=== PATIENT | male | born 1945 | race Hispanic/Latino ===

== ENCOUNTER 2021-12-12 06:53 | Day surgery (SDC) | payer OTHER ==
[2021-12-06 15:14] LABS: BASOPHILS % (AUTO) 0.2 % (0.0-5.0); EOSINOPHILS % (AUTO) 1.8 % (0.0-8.0); HEMATOCRIT 44.8 % (42-54); LYMPHOCYTES % (AUTO) 35.7 % (21.0-51.0); MEAN CORPUSCULAR HEMOGLOBIN 28.1 pg (27.0-33.0); MEAN CORPUSCULAR HGB CONC 32.1 g/dL (32.0-36.0); MEAN CORPUSCULAR VOLUME 87.3 fL (79-99); MONOCYTES % (AUTO) 8.5 % (3.0-13.0); NEUTROPHILS % (AUTO) 53.6 % (40.0-77.0); PLATELET COUNT (AUTO) 179 K/uL (130-400); RED BLOOD CELL COUNT(AUTO) 5.13 MIL/uL (4.50-6.20); RED CELL DISTRIBUTION WIDTH 14.6 % (11.0-15.5); WHITE BLOOD COUNT (AUTO) 6.1 K/uL (4.8-10.8)
[2021-12-06 15:20] LABS: APPEARANCE,URINE Clear (CLEAR); BILIRUBIN,URINE Negative (NEGATIVE); COLOR,URINE Yellow (YELLOW); GLUCOSE, URINE (UA) Negative (NEGATIVE); KETONES,URINE Negative (NEGATIVE); LEUKOCYTE ESTERASE ,URINE Negative (NEGATIVE); NITRATE,URINE Negative (NEGATIVE); OCCULT BLOOD,URINE Negative (NEGATIVE); PROTEIN,URINE Negative (NEGATIVE); UROBILINOGEN,URINE 0.2 mg/dL (0.2-1.0)
[2021-12-06 15:22] LABS: CREATININE 0.8 mg/dL (0.5-1.5); POTASSIUM 4.3 mmol/L (3.5-5.1)
[2021-12-06 15:28] LABS: INR 1.03 (0.85-1.15); PROTHROMBIN TIME 11.2 SEC (9.6-11.6)
[2021-12-06 15:29] LABS: PARTIAL THROMBOPLASTIN TIME 26.1 SEC (26.3-35.5)
[2021-12-12] VITALS (23 sets, daily range): BP systolic 103–150; BP diastolic 63–84
[~2021-12-12] VITALS: Ht 162.6 cm; Wt 82.6 kg
[~2021-12-12 06:53] MED LIST: CEFTRIAXONE 1G VIAL IVP SCH; EZET10TA48 PO; FINA5TAB41 PO; GENTAMICIN 80 MG/NS 100 ML PB 100 ML IV SCH; LOSA25TA41 PO; OMEG-148 PO; ROSU40TA21 PO; TAMS-1 PO
[2021-12-12] MEDS ORDERED: 0.9%NACL 1000ML 1,000 ML IV ONE (09:07)
[2021-12-12] MEDS ORDERED: Levaquin PO (10:34)
[2021-12-12] MEDS ORDERED: MIDAZOLAM HCL 1 MG/ML 2ML VIAL ONE (11:26)
[2021-12-12] MEDS ORDERED: PROPOFOL 10 MG/ML 20ML VIAL IV ONE (11:26)
[2021-12-12] MEDS ORDERED: LIDOCAINE PF 100MG/5ML (2%) SYRINGE 5ML ONE (11:26)
[2021-12-12] MEDS ORDERED: SUCCINYLCHOLINE 200MG/10ML SYR ONE (11:26)
[2021-12-12] MEDS ORDERED: ROCURONIUM 10MG/1ML SYR 10 MG/ML ML ONE ×2 (11:27→12:39)
[2021-12-12] MEDS ORDERED: FENTANYL CITRATE PF 50 MCG/1 ML 2ML VIAL ONE (11:27)
[2021-12-12] MEDS ORDERED: GLYCOPYRROLATE 1 MG/5 ML SYRINGE ONE ×2 (11:44→12:52)
[2021-12-12] MEDS ORDERED: EPHEDRINE SULFATE 50 MG/ML AMPULE ONE (12:03)
[2021-12-12] MEDS ORDERED: NEOSTIGMINE 5MG/5ML SYR IV ONE (12:52)
[2021-12-12] MEDS ORDERED: SUGAMMADEX SODIUM 200 MG/2 ML VIAL IV ONE (12:56)
[2021-12-12] MEDS ORDERED: MEPERIDINE-PF 25 MG/ML SYG ONE (13:24)
[2021-12-12] MEDS ORDERED: OPIUM/BELLADONNA ALKALOIDS 1 EACH SUPP.RECT RC ONE (13:58)
[2021-12-12] MEDS ORDERED: TRAMADOL HCL 50 MG TABLET ONE (14:54)
== END 2021-12-12 15:35 | disposition home or self-care (01) ==
LOC: DAH 06:53
PROVIDERS: ATTEND Urology
DX: N40.1 Benign prostatic hyperplasia with lower urinary tract symptoms (principal); R31.9 Hematuria, unspecified; N39.498 Other specified urinary incontinence; E11.9 Type 2 diabetes mellitus without complications; F32.9 Major depressive disorder, single episode, unspecified; E66.9 Obesity, unspecified; Z79.899 Other long term (current) drug therapy; Z20.822 Contact with and (suspected) exposure to COVID-19
CPT/HCPCS: 36415; 52648; 71045; 80048; 81003; 82948 ×2; 85025; 85610; 85730; 87088; 87635; 88305; 93005; A4215; A4221; A4222; A4223; A4354; A4358; A4663; A4930; A6260; C1758; J0330; J0696; J1580; J2001; J2175; J2250; J2704; J2710; J3010; J3490 ×2; J7030 ×2

== ENCOUNTER → 2024-11-29 | Outpatient (CLI) | payer OTHER ==
[~2024-11-29] MED LIST changes: -CEFTRIAXONE 1G VIAL IVP SCH; -GENTAMICIN 80 MG/NS 100 ML PB 100 ML IV SCH; +Levaquin PO; -ROSU40TA21 PO; +ROSU40TA88 PO; -TAMS-1 PO; +TAMS-55 PO
== END | disposition home or self-care (01) ==
LOC: RAH 08:10
PROVIDERS: ATTEND Internal Medicine Cardiovascular Disease
DX: Z13.6 Encounter for screening for cardiovascular disorders (principal)
CPT/HCPCS: 75571